=== PATIENT | male | born 1995 | race Two or more races ===

== ENCOUNTER 2022-04-03 17:41 | Emergency (ER) | payer MEDICAID, OTHER ==
[~2022-04-03] VITALS: Ht 170.2 cm; Wt 81.6 kg
[2022-04-03 17:51] VITALS: BP 141/76
[2022-04-03] MEDS ORDERED: CLINDAMYCIN 900MG IV 50 ML IV ONE (21:00)
[2022-04-03 21:41] LABS: Basophils # (auto) 0 10 ^3/uL (0-0.2); Basophils % (auto) 0.4 % (0.0-2.0); Eosinophils # (auto) 0.3 10 ^3/uL (0-0.8); Eosinophils % (auto) 2.6 % (0.0-7.0); Hemoglobin 14.4 g/dL (13.5-17.5); Lymphocytes % (auto) 29.6 % (10.0-50.0); Mean Corpuscular Hemoglobin 27.7 pg (28.0-32.0); Mean Corpuscular Volume 86.6 fL (80.0-100.0); Monocytes # (auto) 1.1 10 ^3/uL (0-1.3); Monocytes % (auto) 11.2 % (0.0-12.0); Neutrophils # (auto) 5.6 10 ^3/uL (1.6-8.6); Neutrophils % (auto) 56.2 % (37.0-80.0); Nucleated Red Blood Cells % 0.1 %; Red Cell Distribution Width 13.2 % (11.8-14.3)
[2022-04-03 21:51] LABS: Albumin 3.8 g/dL (3.4-5.0); BUN/Creatinine Ratio 19.1
[2022-04-03 22:00] LABS: Bilirubin, Total 0.2 mg/dL (0.2-1.0); CRP High Sensitivity 6.51 mg/dL (< 0.3)
[2022-04-04] MEDS ORDERED: CLIN-203 PO (01:09)
== END 2022-04-04 01:20 | disposition home or self-care (01) ==
LOC: ER 17:41
DX: L02.31 Cutaneous abscess of buttock (principal); L03.317 Cellulitis of buttock; Z79.2 Long term (current) use of antibiotics
CPT/HCPCS: 10060; 36415; 80053; 85025; 86141; 87205; 96365; 96366; 99284; J3490